=== PATIENT | male | born 1955 | race Caucasian/White ===

== ENCOUNTER 2018-01-23 10:10 | Emergency (ER) | payer OTHER ==
[~2018-01-23] VITALS: Ht 175.3 cm; Wt 76.3 kg
[2018-01-23 10:41] LABS: HEMATOCRIT 44.3 % (42.0-52.0); HEMOGLOBIN 14.9 gm/dL (14.0-18.0); MCH 31.2 pg (26.0-34.0); MCHC 33.6 g/dL (28.0-37.0); MPV 9.4 fl. (7.2-11.1); NUCLEATED RBCS 0 /100WBC; PLATELET COUNT* 85 thou/uL (150-400); RBC 4.76 mil/uL (4.50-6.00); RDW-CV 13.3 % (10.5-14.5); WBC 8.2 thou/uL (4.0-11.0)
[2018-01-23 10:54] LABS: CALCIUM 8.6 mg/dL (8.5-10.1); CREATININE 1.1 mg/dL (0.6-1.3); POTASSIUM 3.8 mmol/L (3.5-5.1)
[2018-01-23 10:56] LABS: INFLUENZA A ANTIGEN None Detected (None Detect)
[2018-01-23 10:58] LABS: ALBUMIN 3.5 g/dL (3.4-5.0); TOTAL BILIRUBIN 0.6 mg/dL (<0.1-1.0); TOTAL PROTEIN 6.7 g/dL (6.4-8.2)
[2018-01-23 10:59] LABS: ABSOLUTE EOSINOPHILS 0.1 thou/uL (0.0-0.7); ABSOLUTE LYMPHOCYTES 0.8 thou/uL (0.8-5.3); ABSOLUTE MONOCYTES 0.4 thou/uL (0.0-1.2); ABSOLUTE NEUTROPHILS 6.9 thou/uL (1.6-8.1)
[2018-01-23 11:00] LABS: PLATELET ESTIMATE DECREASED
[2018-01-23 12:03] LABS: URINE BILIRUBIN NEGATIVE (Negative); URINE BLOOD 2+ (Negative); URINE CLARITY CLEAR; URINE COLOR YELLOW; URINE GLUCOSE-RANDOM NEGATIVE (Negative); URINE KETONES TRACE (Negative); URINE LEUKOCYTES-REFLEX NEGATIVE (Negative); URINE NITRITE-REFLEX NEGATIVE (Negative); URINE PROTEIN NEGATIVE (Negative)
[2018-01-23 12:12] LABS: BACTERIA-REFLEX 1-9 Few /HPF (None Seen); CASTS None Seen /LPF (None Seen); CRYSTALS None Seen /LPF (None Seen); SQUAMOUS NONE SEEN /LPF (0-3); URINE RBC 0-2 Rare /HPF (0-2); URINE WBC-REFLEX None Seen /HPF (0-5)
[2018-01-23] MEDS ORDERED: ZPAK PO (12:23)
[2018-01-23] MEDS ORDERED: ZOFRAN ODT4 MG PO (12:23)
[2018-01-23] MEDS ORDERED: ALBUTEROL2.5 MG/31 INH (12:23)
[2018-01-23] MEDS ORDERED: ACETAMINOPHEN-1 EAC1 PO (12:23)
[2018-01-23 12:51] VITALS: BP 112/59
--- NOTE | 2018-01-23 14:49 | EKG ---
[place] [address] ELECTROCARDIOGRAM REPORT Name: PÉREZ TRUJILLO Room: [facility]#: [id number] Admission: 01/23/18 Attend Phys: Discharge: 01/23/18 Date of : 57 Report #: [id number] THIS REPORT FOR: //name// [facility] ED Test Date: 2018-01-23 Test Time: 10:37:55 Pat Name: PÉREZ TRUJILLO Department: Room: Gender: Pastor: Wilfredo VITAL : 1955 Requested By: Donna Elias Order Number: [id number] Candi MD: Jose C Acosta Measurements Intervals [place] Rate: 91 P: 42 SC: 130 QRS: 62 QRSD: 80 T: 49 QT: 331 QTc: 408 Interpretive Statements Sinus rhythm RSR' in V1 or V2, right VCD or RVH No previous ECG available for comparison Electronically Signed On 01-23-2018 14:49:14 CDT by Jose C Acosta [email or web address] <ELECTRONICALLY SIGNED> By: Jose C Acosta MD, [facility] 01/23/18 1449 [facility] 1037 Jose C Acosta MD, FACC /EPI
== END 2018-01-23 12:52 | disposition home or self-care (01) ==
LOC: M.ERS 10:10
PROVIDERS: Nurse Practitioner Family
DX: J10.1 Influenza due to other identified influenza virus with other respiratory manifestations (principal); M54.5 Low back pain; Z88.8 Allergy status to other drugs, medicaments and biological substances

== ENCOUNTER → 2020-08-31 | Outpatient (CLI) | payer OTHER ==
[~2020-08-31] MED LIST: ACETAMINOPHEN-1 EAC1 PO; ALBUTEROL2.5 MG/31 INH; ZOFRAN ODT4 MG PO; ZPAK PO
== END ==
LOC: M.CT 15:42
PROVIDERS: ATTEND Family Medicine
DX: N40.0 Benign prostatic hyperplasia without lower urinary tract symptoms (principal); K40.20 Bilateral inguinal hernia, without obstruction or gangrene, not specified as recurrent; I25.10 Atherosclerotic heart disease of native coronary artery without angina pectoris; R31.9 Hematuria, unspecified; M54.5 Low back pain

== ENCOUNTER → 2020-09-25 | Outpatient (CLI) | payer OTHER | LOC: M.ULTRA 08:40 | PROVIDERS: ATTEND Family Medicine | DX: R16.0 Hepatomegaly, not elsewhere classified (principal) ==